=== PATIENT | male | born 1985 ===

== ENCOUNTER → 2017-01-12 | Outpatient (REF) | payer BC ==
[~2017-01-12] MED LIST: ACET65TA OR; CELE20TA OR; LEXA5TAB13 OR; OMEP20TA7 OR
== END ==
LOC: M LAB REF 17:54
PROVIDERS: ATTEND Nurse Practitioner Family
DX: M10.071 Idiopathic gout, right ankle and foot (principal)

== ENCOUNTER → 2017-05-01 | Outpatient (REF) | payer BC ==
[2017-05-01 19:51] LABS: URIC ACID 5.1 MG/DL (3.5-7.2)
== END ==
LOC: M LAB REF 17:07
DX: M10.9 Gout, unspecified (principal)